=== PATIENT | male | born 1965 | race Caucasian/White ===

== ENCOUNTER 2020-01-16 10:50 | Emergency (ER) | payer SELFPAY ==
[~2020-01-16] VITALS: Ht 182.9 cm; Wt 86.0 kg
--- NOTE | 2020-01-16 11:07 | EKG ---
[facility] [address] [place] [address] Test Date: 2020-01-16 Test Time: 10:57:15 Pat Name: HENNA STILES Department: Room: Gender: M Pharmacy Ancillary: : 1965 Requested By: ABDIAS DAI Order Number: [id number] Reading MD: Measurements Intervals [place] Rate: 84 P: 48 ND: 138 QRS: 51 QRSD: 92 T: 65 QT: 342 QTc: 407 Interpretive Statements SINUS RHYTHM QRS(T) CONTOUR ABNORMALITY CONSIDER ANTEROLATERAL MYOCARDIAL DAMAGE POSSIBLY ABNORMAL ECG RI6.01 No previous ECG available for comparison
--- NOTE | 2020-01-16 11:07 | PHYS DOC ---
Past Medical History Past Medical History: CAD, Hypertension General Adult EDM: Chief Complaint: CHEST PAIN HPI: HPI: 54-year-old male with significant history of hypertension, coronary artery disease s/p stents at [facility] in 2016, who presents for evaluation of chest press ure, though points his epigastrium as area of discomfort. The patient reports dull upper abdominal discomfort for the last couple days or so. Associate with nausea and dyspnea. Not compliant with home medication regimen. Review of Systems: Review of Systems: Gen: No fever, chills. Eyes: No blurred vision, diplopia. ENT: No nasal congestion, sore throat. CV: No palpitations. Reports chest pressure. Resp. No cough. Reports dyspnea. GI: No vomiting. Reports nausea, abd pain. : No dysuria, hematuria. Neuro: No CARNES, dizziness, weakness. MSK: No myalgia, arthralgia, back pain. Skin: No acute rash or lesion. Heart Score: Risk Factors: Risk Factors: DM, Current or recent (<one month) smoker, HTN, HLP, family history of CAD, obesity. Risk Scores: Score 0 - 3: 2.5% MACE over next 6 weeks - Discharge Home Score 4 - 6: 20.3% MACE over next 6 weeks - Admit for Clinical Observation Score 7 - 10: 72.7% MACE over next 6 weeks - Early Invasive Strategies Physical Exam: PE: Gen: NAD. Well nourished. Head: NC/AT. Eyes: No scleral icterus. No conjunctival injection. ENT: MMM. Posterior OP clear. Neck: Supple. NT. No JVD. CV: RRR. Peripheral pulses intact. Resp: CTAB. Abd: Soft. NT. ND. MSK: No peripheral cyanosis. No edema. No calf tenderness or asymmetry. Neuro: Awake and alert. Skin. Warm. Dry. No acute rash. Psych: Appropriate mood & affect. EKG: EKG: EKG performed at 1057. Sinus rhythm. Heart rate 84. Normal intervals. Nonspecific ST-T changes in the precordial leads. No STEMI criteria met. Interpreted by me. Radiology/Procedures: Radiology/Procedures: CT abdomen and pelvis with contrast History: Epigastric right upper quadrant pain Technique: After the administration of intravenous contrast, CT imaging was performed of the abdomen and pelvis. No oral contrast was given. Multiplanar images are reviewed. Exposure: One or more of the following individualized dose reduction techniques were utilized for this examination: 1. Automated exposure control 2. Adjustment of the mA and/or kV according to patient size 3. Use of iterative reconstruction technique. Comparison: None Findings: There is no significant abnormality of the visualized lung bases. There is coronary calcification. There is no significant abnormality of the liver, spleen, pancreas, adrenal glands. There is accessory spleen. Both kidneys enhance without hydronephrosis. Gallbladder is present, contracted appearance with likely at least borderline wall thickening. Accurate evaluation of bowel is limited without oral contrast. There is appearance of degree of long segment small bowel wall thickening greatest in the left upper quadrant of the proximal small bowel. There is also appearance of wall prominence of the ascending colon and hepatic flexure. There is no free fluid or free air. There is scattered mild colonic diverticulosis, no significant localized inflammatory change. There is probable visualization of small caliber appendix without adjacent inflammatory change. There is scattered plaque of the abdominal aorta, minimally of the right iliac artery. There is mild fat in the left inguinal canal, no bowel. There is facet degenerative change greater inferiorly of the lumbar spine, minimal grade 1 anterior spondylolisthesis L4-5. There is degree of lateral recess stenosis bilaterally at L4-5 and L3-4. Impression: 1. There is nonspecific contracted appearance of the gallbladder, likely at least borderline wall thickening. Mild ascending wall thickening as could be seen with mild colitis is not excluded. 2. There is appearance of degree of small bowel wall thickening greater in the left upper quadrant as could be seen with enteritis in the appropriate clinical setting. Electronically signed by: Bowen Henderson MD (01/16/2020 1:33 PM) [facility] Course & Med Decision Making: Course & Med Decision Making Pertinent Labs and Imaging studies reviewed. (See chart for details) In summary, 54-year-old male who presents for evaluation of lower chest and upper abdominal discomfort and dyspnea. Benign abdominal examination. Negative Gregg's and Rovsing sign. No flank percussion tenderness. EKG shows no acute injury pattern. Troponin negative x2. Mildly elevated lipase with a known history of pancreatitis. Therefore, CT abdomen/pelvis was obtained and shows possible colitis/enteritis. Contracted gallbladder, not currently suspicious for acute cholecystitis. We discharged home with treatment including Augmentin, Flagyl, Zofran. Return precautions given. Dragon Disclaimer: Balta Disclaimer: This electronic medical record was generated, in whole or in part, using a voice recognition dictation system. Departure Departure Impression: Primary Impression: Acute colitis Additional Impression: Enteritis Disposition: 01 DC HOME SELF CARE/HOMELESS Condition: STABLE Referrals: NO PCP (PCP) Patient Instructions: Colitis Scripts Ondansetron (ONDANSETRON ODT) 4 Mg Tab.rapdis 1 TAB PO PRN Q6-8HRS, #16 TAB Prov: LE,ABDIAS H DO 01/16/20 Metronidazole (FLAGYL) 500 Mg Tablet 1 TAB PO Q12H, #20 TAB Prov: LE,ABDIAS H DO 01/16/20 Amoxicillin/Potassium Clav (AUGMENTIN 875-125 TABLET) 1 Each Tablet 1 TAB PO Q12HR, #20 TAB Prov: LE,ABDIAS H DO 01/16/20 LE,ABDIAS H DO Jan 16, 2020 11:07
[2020-01-16] MEDS ORDERED: NITROGLYCERIN OINT 1 GM PACKET. TP ONE (11:15)
[2020-01-16] MEDS ORDERED: MORPHINE SULFATE 4 MG/ML VIAL. IV/SQ PRN (11:15)
[2020-01-16 11:33] LABS: BASO # 0.1 x10^3/uL (0.0-0.2); BASO % 1 % (0-3); EOS # 0.1 x10^3/uL (0.0-0.7); EOS % 3 % (0-3); HEMATOCRIT 49.6 % (39.0-53.0); HEMOGLOBIN 17.2 g/dL (13.0-17.5); LYMPH # 1.9 x10^3/uL (1.0-4.8); LYMPH % 34 % (24-48); MEAN CORPUSCULAR HEMOGLOBIN 30 pg (25-35); MEAN CORPUSCULAR HGB CONC 35 g/dL (31-37); MEAN CORPUSCULAR VOLUME 86 fL (79-100); MONO # 0.4 x10^3/uL (0.0-1.1); MONO % 8 % (0-9); NEUT # 3.2 x10^3/uL (1.8-7.7); NEUT % 55 % (31-73); PLATELET COUNT 265 x10^3/uL (140-400); RED BLOOD COUNT 5.78 x10^6/uL (4.30-5.70); RED CELL DISTRIBUTION WIDTH 14.5 % (11.5-14.5); WHITE BLOOD COUNT 5.7 x10^3/uL (4.0-11.0)
[2020-01-16 11:40] LABS: CREATININE 1.2 mg/dL (0.7-1.3); GFR 63.3
[2020-01-16 11:46] LABS: ALBUMIN 3.6 g/dL (3.4-5.0); MAGNESIUM 2.3 mg/dL (1.8-2.4); TOTAL BILIRUBIN 0.6 mg/dL (0.2-1.0); TOTAL PROTEIN 7.3 g/dL (6.4-8.2)
--- NOTE | 2020-01-16 12:18 | RAD ---
PORTABLE CHEST 1V History: Chest pain Comparison: December 07, 2003 Findings: Single view of the chest is submitted. There is a somewhat lesser degree of inspiration for this exam. There is no lobar infiltrate, dependent pleural fluid, or pneumothorax. Heart size is probably unchanged allowing for differences in technique. Impression: 1. There is no convincing radiographic evidence of acute cardiopulmonary disease. Electronically signed by: Bowen Henderson MD (01/16/2020 12:15 PM) [facility]
[2020-01-16] MEDS ORDERED: CONTRAST GIVEN. MC PRN (13:15)
[2020-01-16] MEDS ORDERED: IOHEXOL 300 MG/ML 100ML VIAL. IV ONE (13:15)
--- NOTE | 2020-01-16 13:36 | RAD ---
CT abdomen and pelvis with contrast History: Epigastric right upper quadrant pain Technique: After the administration of intravenous contrast, CT imaging was performed of the abdomen and pelvis. No oral contrast was given. Multiplanar images are reviewed. Exposure: One or more of the following individualized dose reduction techniques were utilized for this examination: 1. Automated exposure control 2. Adjustment of the mA and/or kV according to patient size 3. Use of iterative reconstruction technique. Comparison: None Findings: There is no significant abnormality of the visualized lung bases. There is coronary calcification. There is no significant abnormality of the liver, spleen, pancreas, adrenal glands. There is accessory spleen. Both kidneys enhance without hydronephrosis. Gallbladder is present, contracted appearance with likely at least borderline wall thickening. Accurate evaluation of bowel is limited without oral contrast. There is appearance of degree of long segment small bowel wall thickening greatest in the left upper quadrant of the proximal small bowel. There is also appearance of wall prominence of the ascending colon and hepatic flexure. There is no free fluid or free air. There is scattered mild colonic diverticulosis, no significant localized inflammatory change. There is probable visualization of small caliber appendix without adjacent inflammatory change. There is scattered plaque of the abdominal aorta, minimally of the right iliac artery. There is mild fat in the left inguinal canal, no bowel. There is facet degenerative change greater inferiorly of the lumbar spine, minimal grade 1 anterior spondylolisthesis L4-5. There is degree of lateral recess stenosis bilaterally at L4-5 and L3-4. Impression: 1. There is nonspecific contracted appearance of the gallbladder, likely at least borderline wall thickening. Mild ascending wall thickening as could be seen with mild colitis is not excluded. 2. There is appearance of degree of small bowel wall thickening greater in the left upper quadrant as could be seen with enteritis in the appropriate clinical setting. Electronically signed by: Bowen Henderson MD (01/16/2020 1:33 PM) [facility]
[2020-01-16] MEDS ORDERED: AMOX1TAB61 PO (14:51)
[2020-01-16] MEDS ORDERED: ONDA4TAB12 PO (14:51)
[2020-01-16] MEDS ORDERED: METR500T PO (14:51)
[2020-01-16 15:00] VITALS: BP 127/78
== END 2020-01-16 15:26 | disposition home or self-care (01) ==
LOC: ER 10:50
DX: K52.9 Noninfective gastroenteritis and colitis, unspecified (principal); R10.13 Epigastric pain; R07.89 Other chest pain; R11.0 Nausea; R06.00 Dyspnea, unspecified; I11.9 Hypertensive heart disease without heart failure
CPT/HCPCS: 36415; 71045; 74177; 80053; 83690; 83735; 83880; 84484; 85025; 93005; 99285; Q9967